=== PATIENT | male | born 1935 | race Caucasian/White ===

== ENCOUNTER 2017-01-27 12:40 | Emergency (ER) | payer MEDICARE ==
[~2017-01-27] VITALS: Ht 177.8 cm; Wt 84.0 kg
[2017-01-27 12:47] VITALS: BP 158/59; PULSE 51; RESP 16; TEMP 97.7; O2SAT 100
--- NOTE | 2017-01-27 13:10 | PD ---
HPI . Headache Chief Complaint: Headache Time Seen by Provider: 13:06 Travel History International Travel<30 days: No Contact w/Intl Traveler<30days: No Traveled to known affect area: No History of Present Illness HPI Patient presents with a pain that started behind his right ear about a week ago. It has now spread to the right side of the scalp. He states that he noticed that his right face felt funny this morning when he was shaving. He decided that he had best come in and be checked for possible stroke. He has not noticed any extremity weakness. He has not had any blurred vision or nausea. He denies any previous similar history. He does state that he has a history of hypertension and carotid artery stenosis. The patient is a snowbird. He usually lives in [place]. He states that he is planning a trip to [place] tomorrow by car. PFSH Past Medical History Hx Anticoagulant Therapy: Yes (ASPIRIN, COUMADIN) Cancer: Yes (PROSTATE) Cardiovascular Problems: Yes (PACER) High Cholesterol: Yes Hypertension: Yes Radiation Therapy: Yes (PROSTATE) Influenza Vaccination: Yes Past Surgical History Coronary Artery Bypass Graft: Yes Pacemaker: Yes Other Surgery: Yes (FEMORAL STENTS) Social History Alcohol Use: Yes Tobacco Use: No Substance Use: No Allergies-Medications (Allergen,Severity, Reaction): Coded Allergies: No Known Allergies (Unverified , 01/27/17) Reported Meds & Prescriptions Reported Meds & Active Scripts Active [place] (Hydrocodone-Acetaminophen) 5-325 mg Tab 1 Tab PO Q4H PRN Prednisone 20 Mg Tab 60 Mg PO DAILY 5 Days Famvir (Famciclovir) 500 Mg Tab 500 Tab PO TID Reported Doxazosin (Doxazosin Mesylate) 4 Mg Tab 4 Mg PO DAILY Warfarin 1 Mg Tab 1 Mg PO DIRECTED Simvastatin 40 Mg Tab 40 Mg PO HS Bystolic (Nebivolol) 20 Mg Tab 20 Mg PO DAILY Amlodipine-Valsartan 5-320 Mg Tab 1 Tab PO DAILY Furosemide 80 Mg Tab 80 Mg PO DAILY Metolazone 5 Mg Tab 5 Mg PO DAILY Review of Systems Except as stated in HPI: all other systems reviewed are Neg Eyes: No: Blurred Vision HENT: Positive: Headaches Cardiovascular: No: Chest Pain or Discomfort Respiratory: No: Shortness of Breath Gastrointestinal: No: Nausea, Vomiting Neurologic: Positive: Paresthesia (right facial), No: Weakness Physical Exam Narrative GENERAL: Very pleasant elderly gentleman who is in no acute distress. SKIN: Warm and dry. There are a few scattered ulcerative lesions behind the right ear. He has a few small (about 2 mm) macular lesions added on the right side of the scalp. HEAD: Atraumatic. Normocephalic. EYES: Pupils equal and round. Extraocular movements are intact. ENT: No nasal bleeding or discharge. Mucous membranes pink and moist. NECK: Trachea midline. Neck is supple. CARDIOVASCULAR: Regular rate and rhythm. Heart sounds are normal. RESPIRATORY: No accessory muscle use. Lungs are clear with full air movement throughout. GASTROINTESTINAL: Abdomen soft, non-tender, nondistended. MUSCULOSKELETAL: No obvious deformities. No edema. NEUROLOGICAL: Awake and alert. No obvious cranial nerve deficits. Motor grossly within normal limits. Normal speech. He was noted to be having fasciculations on the right side of his chest in the right upper back. I had him remove his pants so that I could check his legs. He is having fasciculations in both legs. He had not noticed this prior to arrival. PSYCHIATRIC: Appropriate mood and affect; insight and judgment normal. Data Data Last Documented VS Vital Signs Date Time Temp Pulse Resp B/P Pulse Ox O2 Delivery O2 Flow Rate FiO2 01/27/17 13:55 100 Room Air 01/27/17 13:40 16 01/27/17 12:47 97.7 51 158/59 Orders Electrocardiogram (01/27/17 13:06) Complete Blood Count With Diff (01/27/17 13:06) Comprehensive Metabolic Panel (01/27/17 13:06) Creatine Kinase (Cpk) (01/27/17 13:06) Troponin I (01/27/17 13:06) Ct Brain W/O Iv Contrast(Rout) (01/27/17 13:06) Ecg Monitoring (01/27/17 13:06) Iv Access Insert/Monitor (01/27/17 13:06) Oximetry (01/27/17 13:06) Morphine Inj (Morphine Inj) (01/27/17 13:15) Ondansetron Inj (Zofran Inj) (01/27/17 13:15) Sodium Chloride 0.9% Flush (Ns Flush) (01/27/17 13:15) Labs Laboratory Tests Test 01/27/17 13:20 White Blood Count 5.5 TH/MM3 Red Blood Count 4.02 MIL/MM3 Hemoglobin 11.5 GM/DL Hematocrit 34.9 % Mean Corpuscular Volume 86.8 FL Mean Corpuscular Hemoglobin 28.5 PG Mean Corpuscular Hemoglobin 32.9 % Concent Red Cell Distribution Width 15.8 % Platelet Count 164 TH/MM3 Mean Platelet Volume 8.8 FL Neutrophils (%) (Auto) 60.4 % Lymphocytes (%) (Auto) 23.1 % Monocytes (%) (Auto) 13.1 % Eosinophils (%) (Auto) 2.7 % Basophils (%) (Auto) 0.7 % Neutrophils # (Auto) 3.4 TH/MM3 Lymphocytes # (Auto) 1.3 TH/MM3 Monocytes # (Auto) 0.7 TH/MM3 Eosinophils # (Auto) 0.1 TH/MM3 Basophils # (Auto) 0.0 TH/MM3 CBC Comment DIFF FINAL Differential Comment Sodium Level 142 MEQ/L Potassium Level 4.0 MEQ/L Chloride Level 105 MEQ/L Carbon Dioxide Level 29.2 MEQ/L Anion Gap 8 MEQ/L Blood Urea Nitrogen 29 MG/DL Creatinine 1.30 MG/DL Estimat Glomerular Filtration 53 ML/MIN Rate Random Glucose 79 MG/DL Calcium Level 8.5 MG/DL Total Bilirubin 0.7 MG/DL Aspartate Amino Transf 19 U/L (AST/SGOT) Alanine Aminotransferase 16 U/L (ALT/SGPT) Alkaline Phosphatase 66 U/L Total Creatine Kinase 60 U/L Troponin I LESS THAN 0.02 NG/ML Total Protein 7.9 GM/DL Albumin 3.8 GM/DL [facility] Medical Decision Making Medical Screen Exam Complete: Yes Emergency Medical Condition: Yes Medical Record Reviewed: Yes Interpretation(s) EKG shows rhythm. Differential Diagnosis Differential diagnosis of headache includes but is not limited to migraine, muscle contraction headache, brain tumor, brain bleed Narrative Course Patient presents for the evaluation of headache. He is noted to have some muscular fasciculations. CBC & BMP Diagram 01/27/17 13:[address] 01/27/17 1306 Signed Impressions: Service Date/Time: Friday, January 27, 2017 13:33 - CONCLUSION: Normal examination. Juan Sargent Jr., MD Cardiac enzymes negative. Diagnosis Primary Impression: Shingles Qualified Code: B02.9 - Herpes zoster without complication Patient Instructions: General Instructions, Shingles (DC) Med/Other Pt SpecificInfo: Prescription(s) given Scripts Hydrocodone-Acetaminophen ([place])5-325 mg Tab1 Tab PO Q4H PRN (PAIN) #12 TAB Ref 0 Prov:Skye Roberts MD 01/27/17 Prednisone 20 Mg Tab60 Mg PO DAILY 5 Days Ref 0 Prov:Skye Roberts MD 01/27/17 Famciclovir (Famvir)500 Mg Qoo536 Tab PO TID #30 TAB Ref 0 Prov:Skye Roberts MD 01/27/17 Disposition: 01 DISCHARGE HOME Condition: Stable Skye Roberts MD Jan 27, 2017 13:10
[2017-01-27] MEDS ORDERED: MORPHINE SULFATE 4 MG/ML INJ IV PUSH ONE (13:15)
[2017-01-27] MEDS ORDERED: SODIUM CHLORIDE 0.9% FLUSH 5 ML FLUSH IVF PRN (13:15)
[2017-01-27] MEDS ORDERED: ONDANSETRON HCL 4 MG/2 ML VIAL IVP ONE (13:15)
[2017-01-27 13:27] LABS: AUTOMATED NEUTROPHIL # 3.4 TH/MM3 (1.8-7.7); BASOPHIL % 0.7 % (0.0-2.0); EOSINOPHIL # 0.1 TH/MM3 (0-0.4); EOSINOPHIL % 2.7 % (0.0-4.0); HEMATOCRIT 34.9 % (39.0-51.0); LYMPH % 23.1 % (9.0-44.0); LYMPHOCYTE # 1.3 TH/MM3 (1.0-4.8); MEAN CELL VOLUME 86.8 FL (80.0-100.0); MEAN CORPUSCULAR HEMOGLOBIN 28.5 PG (27.0-34.0); MEAN CORPUSCULAR HGB CONC 32.9 % (32.0-36.0); MONO % 13.1 % (0.0-8.0); NEUT % 60.4 % (16.0-70.0); PLATELET COUNT 164 TH/MM3 (150-450); RED BLOOD COUNT 4.02 MIL/MM3 (4.50-5.90); RED CELL DISTRIBUTION WIDTH 15.8 % (11.6-17.2); WHITE BLOOD COUNT 5.5 TH/MM3 (4.0-11.0)
[2017-01-27] MEDS ORDERED: SIMV40TA PO (13:31)
[2017-01-27] MEDS ORDERED: DOXA1TAB34 PO (13:31)
[2017-01-27] MEDS ORDERED: AMLO-170 PO (13:31)
[2017-01-27] MEDS ORDERED: WARF4TAB52 PO (13:31)
[2017-01-27] MEDS ORDERED: METO5TAB3 PO (13:31)
[2017-01-27] MEDS ORDERED: NEBI20 PO (13:31)
[2017-01-27] MEDS ORDERED: FURO80TA PO (13:31)
[2017-01-27 13:32] LABS: HEMO FLAGS DIFF FINAL
[2017-01-27 13:38] LABS: CHLORIDE 105 MEQ/L (98-107); SODIUM (NA) 142 MEQ/L (136-145)
[2017-01-27 13:43] LABS: ANION GAP 8 MEQ/L (5-15); BICARBONATE 29.2 MEQ/L (21.0-32.0); BLOOD UREA NITROGEN 29 MG/DL (7-18)
[2017-01-27 13:46] LABS: ALT (GPT) 16 U/L (12-78); AST (GOT) 19 U/L (15-37); GLOMERULAR FILTRATION RATE 53 ML/MIN (>89)
[2017-01-27 13:48] LABS: TOTAL BILIRUBIN ADULT 0.7 MG/DL (0.2-1.0)
[2017-01-27 13:49] LABS: ALKALINE PHOSPHATASE 66 U/L (45-117)
--- NOTE | 2017-01-27 13:50 | RADHPO ---
EXAM DATE/TIME: 01/27/2017 13:33 [facility] COMPARISON: No previous studies available for comparison. INDICATIONS : Cephalgia. RADIATION DOSE: 62.92 CTDIvol (mGy) MEDICAL HISTORY : Cardiovascular disease. Carcinoma, prostate. Hypertension. SURGICAL HISTORY : Pacemaker. CABG ENCOUNTER: Initial ACUITY: 1 day PAIN SCALE: 7/10 LOCATION: Right cranial TECHNIQUE: Multiple contiguous axial images were obtained of the head. Using automated exposure control and adj ustment of the mA and/or kV according to patient size, radiation dose was kept as low as reasonably a chievable to obtain optimal diagnostic quality images. FINDINGS: CEREBRUM: The ventricles are normal for age. No evidence of midline shift, mass lesion, hemorrhage or acute in farction. No extra-axial fluid collections are seen. POSTERIOR FOSSA: The cerebellum and brainstem are intact. The 4th ventricle is midline. The cerebellopontine angle i s unremarkable. EXTRACRANIAL: The visualized portion of the orbits is intact. SKULL: The calvaria is intact. No evidence of skull fracture. CONCLUSION: Normal examination. Juan Sargent Jr., MD on January 27, 2017 at 13:47 Board Certified Radiologist. This report was verified electronically.
[2017-01-27 13:55] VITALS: O2SAT 100
[2017-01-27 14:04] LABS: CREATINE KINASE 60 U/L (39-308)
[2017-01-27] MEDS ORDERED: PRED20 PO (14:06)
[2017-01-27] MEDS ORDERED: NORC5TAB PO (14:06)
[2017-01-27] MEDS ORDERED: FAMC500T23 PO (14:06)
[2017-01-27 14:39] VITALS: BP 146/69; PULSE 54; RESP 18; O2SAT 99
--- NOTE | 2017-01-28 18:15 | EKG ---
Date Performed: 01/27/2017 Time Performed: 13:14:46 PTAGE: 81 years EKG: Ventricular pacing. Pacemaker rhythm - no further analysis Abnormal ECG NO PREVIOUS TRACING DOCTOR: Rashi Tolbert Interpretating Date/Time 01/28/2017 18:12:35
== END 2017-01-27 14:46 | disposition home or self-care (01) ==
LOC: PHED 12:40
DX: B02.9 Zoster without complications (principal); R20.2 Paresthesia of skin; R94.31 Abnormal electrocardiogram [ECG] [EKG]; I10 Essential (primary) hypertension; E78.00 Pure hypercholesterolemia, unspecified; Z79.82 Long term (current) use of aspirin; Z79.01 Long term (current) use of anticoagulants; Z95.0 Presence of cardiac pacemaker; Z86.79 Personal history of other diseases of the circulatory system; Z85.46 Personal history of malignant neoplasm of prostate
CPT/HCPCS: 70450; 80053; 82550; 84484; 85025; 93005; 96374; 96375; 99284; J2270; J2405